=== PATIENT | female | born 1980 | race Caucasian/White ===

== ENCOUNTER 2018-02-20 16:00 | Inpatient (IN) | payer OTHER ==
[~2018-02-20] VITALS: Ht 152.4 cm; Wt 83.9 kg
[~2018-02-20 16:00] MED LIST: IBUP-2070 BU; PREN1CAP18 PO
[2018-02-20] MEDS ORDERED: OXYTOCIN 30 UNITS/LACT RINGERS 500 ML IV ONE (16:24)
[2018-02-20] MEDS ORDERED: RINGERS SOLUTION,LACTATED 1,000 ML IV PRN (16:24)
[2018-02-20] MEDS ORDERED: FentaNYL CITRATE-PF 100 MCG/2 ML VIAL IVP PRN (16:30)
[2018-02-20] MEDS ORDERED: METOCLOPRAMIDE HCL 5 MG/ML 2 ML VIAL IVP PRN (16:30)
[2018-02-20] MEDS ORDERED: CITRIC ACID/SODIUM CITRATE 30 ML SOLUTION UDCUP PO PRN (16:30)
[2018-02-20] MEDS ORDERED: LIDOCAINE/PF 1% 30 ML VIAL INJ PRN (16:30)
[2018-02-20] MEDS ORDERED: INSNPH SQ (16:56)
[2018-02-20 17:12] LABS: BASOPHILS % (AUTO) 0.3 % (0.0-2.0); EOSINOPHILS % (AUTO) 0.1 % (1.0-6.0); HEMATOCRIT 35.4 % (36-46); HEMOGLOBIN 12.1 g/dL (12.0-16.0); LYMPHOCYTES # (AUTO) 1.7 K/uL (1.0-4.8); MEAN CORPUSCULAR HEMOGLOBIN 30.8 pg (26.0-34.0); MEAN CORPUSCULAR HGB CONC 34.1 G/dL (31.0-37.0); MEAN CORPUSCULAR VOLUME 90 fL (80-100); MONOCYTES # (AUTO) 0.4 K/uL (0.1-1.0); MONOCYTES % (AUTO) 3.7 % (2.0-9.0); NEUTROPHILS # (AUTO) 8.3 K/uL (1.8-7.7); NEUTROPHILS % (AUTO) 79.9 % (40.0-70.0); PLATELET COUNT (AUTO) 292 K/uL (150-450); RED BLOOD CELL COUNT(AUTO) 3.93 MIL/uL (4.00-5.20); RED CELL DISTRIBUTION WIDTH 17.1 % (11.5-14.5)
[2018-02-20] MEDS: RINGERS SOLUTION,LACTATED 1,000 ML IV SCH ×2 (17:34→20:49)
[2018-02-20 17:53] VITALS: BP 122/76
[2018-02-20 18:09] LABS: GLUCOMETER DEV NAME(LOC) 4S 8; GLUCOSE,POINT OF CARE 76 MG/DL (70-110)
[2018-02-20] MEDS ORDERED: MISOPROSTOL 25 MCG TABLET PO ONE (19:30)
[2018-02-20] MEDS ORDERED: OXYGEN THERAPY IH SCH (20:00)
[2018-02-21] MEDS ORDERED: ROPIVACAINE HCL/PF 0.2% 100 ML ED ONE (00:43)
[2018-02-21] MEDS ORDERED: LIDOCAINE/PF 2% 5 ML VIAL ONE (00:43)
[2018-02-21] MEDS ORDERED: NALBUPHINE HCL 10 MG/ML VIAL IVP PRN (01:00)
[2018-02-21] MEDS ORDERED: ROPIVACAINE HCL/PF 0.2% 100 ML ED PRN (01:00)
[2018-02-21] MEDS ORDERED: ONDANSETRON HCL 4 MG/2 ML VIAL IVP PRN (01:00)
[2018-02-21] MEDS ORDERED: DiphenhydrAMINE HCL 50 MG/ML VIAL IVP PRN (01:00)
[2018-02-21] MEDS: RINGERS SOLUTION,LACTATED 1,000 ML IV SCH (01:52)
[2018-02-21] MEDS ORDERED: RINGERS SOLUTION,LACTATED 1,000 ML IV ONE (03:01)
[2018-02-21] MEDS ORDERED: MEASLES/MUMPS/RUBELLA VACCINE, LIVE 0.5 ML/VIAL SQ ONE (03:15)
[2018-02-21] MEDS ORDERED: OxyCODONE HCL/ACETAMINOPHEN 5-325 MG TABLET PO PRN ×2 (03:15)
[2018-02-21] MEDS ORDERED: GLYCERIN/WITCH HAZEL LEAF 40 PADS JAR TP PRN (03:15)
[2018-02-21] MEDS ORDERED: LANOLIN 7 GM OINTMENT TP PRN (03:15)
[2018-02-21] MEDS ORDERED: BENZOCAINE 20%/MENTHOL 56 GM SPRAY CANISTER TP PRN (03:15)
[2018-02-21] MEDS: IBUPROFEN 600 MG TABLET PO PRN ×2 (08:37→18:51)
[2018-02-21] MEDS ORDERED: MAGNESIUM HYDROXIDE SUSPENSION 30 ML UDCUP PO SCH (09:00)
[2018-02-21 20:25] LABS: GLUCOMETER DEV NAME(LOC) 4S 8; GLUCOSE,POINT OF CARE 138 MG/DL (70-110)
[2018-02-22] MEDS: IBUPROFEN 600 MG TABLET PO PRN (06:54)
[2018-02-22 06:59] LABS: GLUCOMETER DEV NAME(LOC) 4S 8; GLUCOSE,POINT OF CARE 95 MG/DL (70-110)
[2018-02-22] MEDS ORDERED: DSS100 PO (10:01)
== END 2018-02-22 10:40 | disposition home or self-care (01) | DRG 807 ==
LOC: OBSVTOIN 16:00 → 4S 16:00
PROVIDERS: ADMIT Obstetrics & Gynecology; ATTEND Obstetrics & Gynecology
PROC: 10D07Z6 Extraction of Products of Conception, Vacuum, Via Natural or Artificial Opening (ICD-10-PCS; principal; 2018-02-21)
PROC: 0KQM0ZZ Repair Perineum Muscle, Open Approach (ICD-10-PCS; 2018-02-21)
PROC: 3E0R3BZ Introduction of Anesthetic Agent into Spinal Canal, Percutaneous Approach (ICD-10-PCS; 2018-02-21)
PROC: 00HU33Z Insertion of Infusion Device into Spinal Canal, Percutaneous Approach (ICD-10-PCS; 2018-02-21)
DX: O41.03X0 Oligohydramnios, third trimester, not applicable or unspecified (principal); Z37.0 Single live birth; O24.424 Gestational diabetes mellitus in childbirth, insulin controlled; O69.81X0 Labor and delivery complicated by cord around neck, without compression, not applicable or unspecified; O70.1 Second degree perineal laceration during delivery; Z3A.38 38 weeks gestation of pregnancy
CPT/HCPCS: J2590; J2795; J3490; J7120